=== PATIENT | female | born 1975 ===

== ENCOUNTER 2023-04-05 06:00 | Day surgery (SDC) | payer OTHER ==
[~2023-04-05] VITALS: Ht 160 cm; Wt 69.9 kg
[2023-04-05] MEDS ORDERED: OXYC1TAB9 PO (13:39)
== END 2023-04-05 18:30 | disposition home or self-care (01) ==
LOC: CIR.AMB 06:00
PROVIDERS: ATTEND Surgery
DX: K64.2 Third degree hemorrhoids (principal); K62.5 Hemorrhage of anus and rectum; K64.4 Residual hemorrhoidal skin tags; K64.8 Other hemorrhoids; K62.89 Other specified diseases of anus and rectum; Z20.822 Contact with and (suspected) exposure to COVID-19; I10 Essential (primary) hypertension